=== PATIENT | female | born 1995 | race African-American/Black ===

== ENCOUNTER 2017-01-15 22:56 | Emergency (ER) ==
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
[2017-01-15] MEDS ORDERED: NS 1,000 ML IV PRN (23:28)
[2017-01-15] MEDS ORDERED: ZOFRAN IV ONE (23:29)
[2017-01-15] MEDS ORDERED: MORPHINE IV ONE (23:29)
[2017-01-15 23:44] LABS: MANUAL DIFF NEEDED? NO
[2017-01-15 23:46] LABS: URINE SOURCE CLEAN CATCH
[2017-01-15 23:51] LABS: BASO% 0.1 % (0.0-0.8); EOS# 0.09 X1000 (0.0-0.7); EOS% 0.9 % (0.0-10.0); HEMATOCRIT 34.9 % (37.0-47.0); HEMOGLOBIN 11.8 g/dL (12.0-16.0); IMM GRAN# 0.01 X1000 (0.0-0.04); IMM GRAN% 0.1 % (0.0-0.5); LYMPH# 4.01 X1000 (1.2-3.4); LYMPH% 41.4 % (20.5-51.1); MCHC 33.8 g/dL (33-37); MONO# 0.99 X1000 (0.11-0.59); MONO% 10.2 % (1.7-9.3); MPV 10.6 FL (7.4-10.4); NEUT% 47.3 % (42.2-75.2); PLT 206 X1000 (130-400); RBC 4.53 XMIL (4.2-5.4)
[2017-01-16 00:12] LABS: BILIRUBIN URINE NEGATIVE (NEGATIVE); BLOOD URINE NEGATIVE (NEGATIVE); CLARITY CLEAR (CLEAR); COLOR YELLOW; GLUCOSE URINE NEGATIVE (NEGATIVE); LEUKOCYTES URINE NEGATIVE (NEGATIVE); NITRITE URINE NEGATIVE (NEGATIVE); PROTEIN URINE NEGATIVE (NEGATIVE); UROBILINOGEN URINE NORMAL
[2017-01-16 00:21] LABS: AGAP 7; ALBUMIN 3.9 g/dL (3.5-5.0); ALKALINE PHOSPHATASE 160 U/L (32-104); BUN 6 mg/dL (8-22); CHLORIDE 101 mmol/L (98-107); COSMO 262; GOT 26 U/L (10-30); GPT 21 U/L (10-36); POTASSIUM 3.3 mmol/L (3.5-5.1); SODIUM 132 mmol/L (136-145); TCO2 24 mmol/L (25-35)
[2017-01-16 00:23] LABS: URINE CULTURE PL NEEDED? YES; URINE EPITHELIAL CELLS >10 /HPF (<10); URINE RBC <10 /HPF (<10); URINE WBC <10 /HPF (<10)
[2017-01-16 02:03] VITALS: BP 123/72
--- NOTE | 2017-01-16 06:57 | Diag Imaging Result Document ---
PROCEDURE NAME: HEAD/C-SPINE W/O CONTRAST - 01/16/2017 CT BRAIN AND CERVICAL SPINE WITHOUT CONTRAST: CT BRAIN: TECHNIQUE: Dose-reduction protocol. IMPRESSION: No parenchymal hemorrhage. No epidural or subdural hematoma. No subarachnoid hemorrhage. No skull fracture. No mass identified on this noncontrasted exam. No hydrocephalus. No sinus opacification or air fluid levels. IMPRESSION: No hemorrhage. No injury. CT CERVICAL SPINE WITHOUT CONTRAST: FINDINGS: There is good alignment to the cervical spine. No precervical soft tissue swelling. No subluxation. Prominent adenoidal tissue. No fracture. No disk herniation identified. IMPRESSION: No acute bony injury. A preliminary report was given at 1:13 a.m.
--- NOTE | 2017-01-16 07:04 | Diag Imaging Result Document ---
PROCEDURE NAME: ABDOMEN W/O CONTRAST - 01/16/2017 CT ABDOMEN WITHOUT ORAL OR INTRAVENOUS CONTRAST: Injury cannot be excluded without intravenous contrast. FINDINGS: The lower lungs are clear. No pleural effusions. No fluid about the liver or spleen. No abnormality to the liver or spleen identified on this noncontrast exam. The gallbladder is contracted. Normal pancreas and adrenal glands. No renal stones. No hydronephrosis. No retroperitoneal hematoma. The bowel loops are not dilated. Normal aorta. No free air. IMPRESSION: 1. Unable to exclude injury without intravenous contrast. However, there is no free fluid or free air. 2. No renal stones. 3. No bowel obstruction. A preliminary report was given at 1:26 a.m.
== END 2017-01-16 02:02 | disposition home or self-care (01) ==
LOC: P.ED 22:56
DX: S09.90XA Unspecified injury of head, initial encounter (principal); S30.1XXA Contusion of abdominal wall, initial encounter; S61.250A Open bite of right index finger without damage to nail, initial encounter; R51 Headache; M54.2 Cervicalgia; M79.1 Myalgia; V86.59XA Driver of other special all-terrain or other off-road motor vehicle injured in nontraffic accident, initial encounter; Y04.1XXA Assault by human bite, initial encounter; E07.9 Disorder of thyroid, unspecified; R01.1 Cardiac murmur, unspecified
CPT/HCPCS: 70450; 72125; 74150; 80053; 81001; 81025; 85025; 87077; 87088; 96361; 96374; 96375; J2270; J2405; J7030

== ENCOUNTER 2020-01-14 12:21 | Inpatient (IN) ==
[2020-01-14] MEDS ORDERED: BENADRYL IV ONE (12:49)
[2020-01-14] MEDS ORDERED: SOLU-MEDROL IV ONE (12:49)
[2020-01-14] MEDS ORDERED: SODIUM CHLORIDE 0.9% INJ ONE ×2 (12:49→19:43)
[2020-01-14] MEDS ORDERED: PEPCID IV ONE (12:49)
[2020-01-14] MEDS ORDERED: EPINEPHRINE SUBQ ONE (12:52)
[2020-01-14] MEDS ORDERED: NS 500 ML IV ONE (13:43)
--- NOTE | 2020-01-14 14:29 | PROVIDER DOCUMENTATION ---
This chart was entered by Joanna Dave Scribe, acting as scribe for Roxane Fitzgerald MD. HPI-Rash/Wound/ReCheck <Zane Mckeon - Last Filed: 01/14/20 16:10> <Eulogio Villanueva - Last Filed: 01/15/20 00:22> - General Source: patient - History of Present Illness-Dermatology Location: reports: face Quality: reports: painful Severity: reports: mild Onset/Duration: reports: this morning (0600.) Timing: reports: still present, getting worse Context/Associated Symptoms: reports: swelling/mass/lumps (swelling) Identifiable cause?: No Similar Symptoms Previously?: No Recently seen or treated by another doctor?: No <Roxane Fitzgerald - Last Filed: 01/19/20 22:06> - General Chief Complaint: Allergic Reaction Stated Complaint: POSS ALLERGIC REACTION Time Seen by Provider: 01/14/20 12:47 Allergies/Adverse Reactions: Allergies Allergy/AdvReac Type Severity Reaction Status Date / Time No Known Allergies Allergy Verified 01/14/20 13:10 Home Medications: Home Medication List Medication Instructions Recorded Confirmed Last Taken Type Amoxicillin/Pot Clavulanate 875 mg PO Q12HR #20 tab 01/17/20 Unknown Rx [Augmentin] Lansoprazole [Prevacid] 30 mg PO DAILY #30 tab.rap 01/17/20 Unknown Rx Methimazole [Tapazole] 5 mg PO BID #60 tab 01/17/20 Unknown Rx Metoprolol [Lopressor] 25 mg PO Q12HR #60 tab 01/17/20 Unknown Rx Ondansetron Odt [Zofran Odt] 4 mg PO Q6H PRN PRN #30 tab 01/17/20 Unknown Rx - History of Present Illness-Dermatology Nature of Presenting Problem: Patient is a 24 year old female who presents with facial swelling. States swelling started at 0600. Reports taking a 800 mg ibuprofen this morning due to menstrual cramps. (Roxane Fitzgerald) Review of Systems - Adult - REVIEW OF SYSTEMS - ADULT Constitutional: reports: no symptoms reported Eyes: reports: no symptoms reported Ears, Nose, Mouth & Throat: reports: no symptoms reported Cardiovascular: reports: no symptoms reported Respiratory: reports: no symptoms reported Gastrointestinal: reports: no symptoms reported Genitourinary: reports: no symptoms reported Musculoskeletal: reports: no symptoms reported Integumentary: reports: see HPI, other (swelling to face) Neurological: reports: no symptoms reported Psychiatric: reports: no symptoms reported Endocrine: reports: no symptoms reported Hematologic/Lymphatic: reports: no symptoms reported Allergic/Immunologic: reports: no symptoms reported All Other Systems: Reviewed and Negative <Roxane Fitzgerald - Last Filed: 01/19/20 22:06> Past History - Adult - PAST MEDICAL HISTORY-ADULT Review of Records: reports: Old Records Reviewed, Nursing Assessment Review, Medications Reviewed, Social history reviewed & non-contributory. Major Childhood Illnesses: reports: denies history Cardiovascular: reports: denies history Respiratory: reports: asthma Gastrointestinal: reports: denies history Obstetrical/Gynecological: reports: fibroids, ovarian cysts Genitourinary: reports: denies history Musculoskeletal: reports: denies history Neurological: reports: denies history Endocrine/Immune: reports: anemia, thyroid disorder, other (blood transfusion yr ago) Other Conditions: reports: denies history - PRIOR SURGERIES/PROCEDURES Surgical/Procedure History: reports: none - PRIOR HOSPITALIZATIONS Prior Hospitalizations: reports: none - IMMUNIZATION STATUS Childhood Immunizations: See Nurse Assessment Flu Vaccine: See Nurse Assessment - FAMILY HISTORY Family History: reviewed, not pertinent, lung disease - SOCIAL HISTORY Smoking: cigarettes, less than 1 pack/day Provider spent 3-5 mins advising pt. on dangers of tobacco.: Discussed manners to quit use, and f/u contacts for add'l counseling. Substance Use: denies Living Situation: family <Roxane Fitzgerald - Last Filed: 01/19/20 22:06> Physical Exam-General - PHYSICAL EXAM-ADULT Initial Vital Signs Reviewed: Yes - CONSTITUTIONAL General Appearance: alert, mild distress. negative: slow to respond - HEAD, EARS, NOSE, MOUTH & THROAT HENMT: moist mucous membranes, pharynx normal, angioedema (upper lip and bilateral cheeks) - RESPIRATORY Respiratory: chest non-tender, wheezing (scattered wheezing bilaterally). negative: respiratory distress - CARDIOVASCULAR Cardiovascular: tachycardia - GASTROINTESTINAL (ABDOMEN) Abdominal Exam: normal bowel sounds, non tender, soft - MUSCULOSKELETAL Extremity: normal range of motion, normal gait, normal inspection - SKIN Integumentary: normal color, normal turgor, warm/dry - NEUROLOGIC Neurologic: grossly normal - PSYCHIATRIC Psych/Mental Status: normal mood/affect, normal thought content, normal thought process, oriented x 3 <Roxane Fitzgerald - Last Filed: 01/19/20 22:06> Progress - REASSESSMENT Reassessment #1 Time Reassessed: 13:44 (no improvement or worsening of s/s. Will order FFP. O2 sat remain 99% on RA) Reassessment #2 Time Reassessed: 16:10 (pt sleeping. No improvement or worsening in symptoms. FFP started approx 20min prior.) <Zane Mckeon - Last Filed: 01/14/20 16:10> - REASSESSMENT Reassessment #3 Time Reassessed: 19:35 Status: unchanged Reassessment Comment: still has swelling in lips and throat - CONSULTS/PCP/HOSPITALIST Notification #1 *Consult/PCP/Hospitalist*: Dr. May, hospitalist Time Discussed: 19:40 Consult Disposition: Admit <Eulogio Villanueva - Last Filed: 01/15/20 00:22> - PLAN OF CARE/RESULTS Result Diagrams: 01/16/20 10:00 01/16/20 10:00 - CHANGE OF SHIFT REPORT (ED Provider) 1 Report Given and Care Transferred to:: Dr Villanueva Time of Transfer: 19:00 Items Pending: Other (completion of transfusion and dispo) <Roxane Fitzgerald - Last Filed: 01/19/20 22:06> - PLAN OF CARE/RESULTS Progress/Plan/Lab Results: Orders Category Date Time Status Admit - [facility] Routine AdmDCTranf 01/14/20 19:41 Active Activity - Bed Rest with BRP ORDERED Care 01/14/20 19:41 Completed Consent for Test/Procedure DIRECTED Care 01/14/20 13:44 Completed NEWS Score 2-4:Order NEWS Lactate Series NOW Care 01/14/20 12:45 Completed Neurological Check Q4H Care 01/14/20 19:42 Completed Notify MD if DIRECTED Care 01/14/20 13:44 Completed Resuscitation Status Routine Care 01/14/20 19:41 Completed Transfuse .Give-Transfuse Care 01/14/20 13:43 Completed Vital Signs Order Q 4-HR ASSESS Care 01/14/20 19:41 Completed ANTIBODY IDENTIFICATION [BBK] Stat Lab 01/14/20 12:54 Completed FRESH FROZEN PLASMA [BBK] Stat Lab 01/14/20 12:54 Completed TYPE & SCREEN [BBK] Stat Lab 01/14/20 12:54 Completed 0.9% Sodium Chloride Inj [Ns] 500 ml Med 01/14/20 13:43 Discontinued IV 30 mls/hr Diphenhydramine [Benadryl] Med 01/14/20 12:49 Discontinued 50 mg IV NOW ONE Diphenhydramine [Benadryl] Med 01/14/20 20:00 Discontinued 50 mg IV Q6H Epinephrine Med 01/14/20 12:52 Discontinued 0.3 mg SUBQ NOW ONE Famotidine [Pepcid] Med 01/14/20 12:49 Discontinued 20 mg IV NOW ONE Famotidine [Pepcid] Med 01/14/20 21:00 Discontinued 20 mg IV Q12H Methylprednisolone Sod Succ [Solu-Medrol] Med 01/14/20 12:49 Discontinued 125 mg IV NOW ONE Methylprednisolone Sod Succ [Solu-Medrol] Med 01/14/20 20:00 Discontinued 125 mg IV Q6H Sodium Chloride 0.9% Med 01/14/20 12:49 Discontinued 5 - 10 ml INJ NOW ONE Sodium Chloride 0.9% Med 01/14/20 19:43 Discontinued 5 - 10 ml INJ NOW ONE Sodium Chloride 0.9% Med 01/14/20 21:00 Discontinued 5 - 10 ml INJ Q12H Oxygen Device Routine Oth 01/14/20 19:42 Completed Pulse Oximetry Stat Oth 01/14/20 19:44 Completed Transfer/Admit Order [TRANSFER] Routine Transfer 01/14/20 19:44 Completed Patient did not improve after benadryl, solu-medrol, pepcid, and epi. Concern for possible hereditary angioedema as she is on no medications to cause this. Patient given FFP. Multiple reeval with slow improvements. No concern for airway obstruction at this time. Signed patient out to Dr Villanueva to complete transfusion. Further dispo per his reeval. (Roxane Fitzgerald) Departure <Zane Mckeon - Last Filed: 01/14/20 16:10> - Departure Time of Disposition Decision: 20:18 Certified Medical Emergency: Emergent <Eulogio Villanueva Last Filed: 01/15/20 00:22> - Departure Date of Disposition Decision: 01/14/20 Certified Medical Emergency: Emergent - Critical Care Note This patient required my direct & personal management of CC.: Yes Total Time (mins): 75 Critical Care Statement: This patient required my direct personal management to treat or rule out processes, the absence of which, could potentiallly result in sudden, clinically significant life or limb threatening deterioration. <Roxane Fitzgerald - Last Filed: 01/19/20 22:06> - Departure DIAGNOSIS: Angioedema Qualifiers: Encounter type: initial encounter Qualified Code(s): T78.3XXA - Angioneurotic edema, initial encounter Disposition: HOME 01 Condition: Stable Attestation - Physician/ ISSA Attestation Patient care was provided by Advanced Practice Provider:: Yes Advanced Practice Provider:: Zane Mckeon Advanced Practice Provider documentation review:: The Mid-level provider documentation, treatment plan and medical decision making was reviewed by the physician who agrees with all treatment and medical decision making by the MLP. The physician spent face to face time with patient:: Yes Advanced Practice Provider documentation review:: Supervising physician onsite and consulted in the evaluation and care of this patient. The physician did have a face to face encounter with the patient. <oRxane Fitzgerald - Last Filed: 01/19/20 22:06> This chart was documented by the indicated scribe, (Joanna Dave Scribe) and accurately reflects the services I performed and decisions made by me, Roxane Fitzgerald MD, as attested by the provider's signature.
[2020-01-14] MEDS ORDERED: SODIUM CHLORIDE 0.9% INJ SCH ×2 (21:00)
[2020-01-14] MEDS ORDERED: PEPCID IV SCH (21:00)
[2020-01-14] MEDS: SOLU-MEDROL IV SCH (21:52)
[2020-01-14] MEDS: BENADRYL IV SCH (21:52)
[2020-01-14] MEDS: ZOFRAN IV PRN (22:32)
[2020-01-15] MEDS: BENADRYL IV SCH (01:58)
[2020-01-15] MEDS: SOLU-MEDROL IV SCH ×2 (01:58→17:55)
[2020-01-15 06:17] LABS: INR 1.06; PROTIME 14.3 Seconds (11.0-16.0)
[2020-01-15 06:37] LABS: HEMATOCRIT 24.6 % (37.0-47.0); HEMOGLOBIN 6.9 g/dL (12.0-16.0)
[2020-01-15] MEDS ORDERED: APRESOLINE IV PRN (06:49)
[2020-01-15 13:31] LABS: HEMATOCRIT 24.6 % (37.0-47.0); HEMOGLOBIN 6.9 g/dL (12.0-16.0); LYMPH# 0.46 X1000 (1.2-3.4); LYMPH% 25.4 % (20.5-51.1); MCH 17.4 PG (27-31); MONO% 22.1 % (1.7-9.3); MPV 10.1 FL (7.4-10.4); NEUT# 0.95 X1000 (1.4-6.5); NEUT% 52.5 % (42.2-75.2); PLT 163 X1000 (130-400); RBC 3.97 XMIL (4.2-5.4); RDW 20.3 % (11.5-14.5); WBC 1.81 X1000 (4.8-10.8)
[2020-01-15 13:37] LABS: BILIRUBIN URINE NEGATIVE (NEGATIVE); BLOOD URINE MODERATE (NEGATIVE); COLOR YELLOW; KETONE URINE 20 mg/dL (NEGATIVE); LEUKOCYTES URINE NEGATIVE (NEGATIVE); NITRITE URINE NEGATIVE (NEGATIVE); PROTEIN URINE TRACE mg/dL (NEGATIVE); TURBIDITY URINE CLEAR (CLEAR); UR EPITHELIAL CELLS <10 /HPF (<10); URINE BACTERIA 2+ /HPF; URINE RBC <10 /HPF (<10); URINE SOURCE CLEAN CATCH; URINE WBC <10 /HPF (<10); UROBILINOGEN URINE NORMAL (NORMAL)
[2020-01-15 13:37] LABS: AGAP 13; BUN 15 mg/dL (8-22); CALCIUM 8.5 mg/dL (8.8-10.2); CHLORIDE 100 mmol/L (98-107); COSMO 278; CREATININE 0.3 mg/dL (0.5-0.9); ESTIMATED GFR > 60; GLUCOSE 194 mg/dL (70-104); POTASSIUM 3.8 mmol/L (3.5-5.1); SODIUM 136 mmol/L (136-145); TCO2 24 mmol/L (25-35)
[2020-01-15 14:09] LABS: GLUCOSE URINE 300 mg/dL (NEGATIVE)
[2020-01-15] MEDS ORDERED: NS 500 ML IV ONE (14:13)
[2020-01-15] MEDS ORDERED: TYLENOL PO ONE ×2 (14:25→18:26)
[2020-01-15] MEDS ORDERED: BENADRYL PO ONE ×2 (14:25→18:26)
[2020-01-15] MEDS ORDERED: SOLU-MEDROL IV SCH (14:30)
[2020-01-15] MEDS ORDERED: NS 500 ML IV SCH (14:30)
[2020-01-15 14:45] LABS: UR AMPHETAMINES QUAL NONE DETECTED (NONE DETECT); UR BARBITUATES QUAL NONE DETECTED (NONE DETECT); UR BENZODIAZEPIN QUAL NONE DETECTED (NONE DETECT); UR CANNABINOIDS QUAL PRESUMPTIVE POSITIVE (NONE DETECT); UR COCAINE QUAL NONE DETECTED (NONE DETECT); UR METHADONE QUAL NONE DETECTED (NONE DETECT); UR METHAMPHETAMINE QUAL NONE DETECTED (NONE DETECT); UR OPIATES QUAL NONE DETECTED (NONE DETECT); UR OXYCODONE QUAL NONE DETECTED (NONE DETECT); UR PCP QUAL NONE DETECTED (NONE DETECT); UR PROPOXYPHENE QUAL NONE DETECTED (NONE DETECT); UR TCA QUAL NONE DETECTED (NONE DETECT)
[2020-01-15 16:02] LABS: BANDS 8 % (0-1); HYPOCHROM 3+; LYMPHS 20 % (21-51); MICROCYTOSIS 3+; MONO 8 % (1-9); SEGS 64 % (42-75)
[2020-01-15 16:31] LABS: IRON SATURATION 3 %; TIBC 378 ug/dL; TOTAL IRON 11 ug/dL (49-151); UNBOUND IRON 367 ug/dL (112-346)
--- NOTE | 2020-01-15 17:51 | Diag Imaging Result Doc PS360 ---
EXAM: CT HEAD W/O CONTRAST INDICATION: lethargy TECHNIQUE: This exam was performed using automated exposure control, adjustment of mA or kV according to patient size, and/or use of iterative reconstruction technique. COMPARISON: 11/22/2019 FINDINGS: There is no definite acute infarct given the limited sensitivity of CT versus MRI. There is no discrete intracranial mass, mass effect, or intracranial hemorrhage. A moderate-sized right mastoid air cell effusion has developed since the previous study. Surrounding soft tissues and bony structures are essentially unremarkable, otherwise. IMPRESSION: 1.No evidence of acute intracranial pathology. 2.Moderate-sized right mastoid air cell effusion. Electronically signed by Marques Lopez 01/15/2020 5:49 PM
[2020-01-15] MEDS: PEPCID IV SCH (17:54)
[2020-01-15] MEDS: ZYRTEC PO SCH (17:54)
[2020-01-15] MEDS: ZOFRAN IV PRN (17:55)
[2020-01-15] MEDS: SODIUM CHLORIDE 0.9% INJ SCH (17:55)
--- NOTE | 2020-01-15 17:57 | Diag Imaging Result Doc PS360 ---
EXAM: CT NECK W/CONTRAST INDICATION: ?angioedema, ?lymphadenopathy TECHNIQUE: This exam was performed using automated exposure control, adjustment of mA or kV according to patient size, and/or use of iterative reconstruction technique. COMPARISON: None. FINDINGS: The salivary glands are unremarkable. There is a tiny 2.6 mm hypodense nodule or cyst associated with the left thyroid lobe. The thyroid is unremarkable, otherwise. There is motion artifact through the pharynx, which obscures fine details. However, there does appear to be hypertrophy of the palatine and nasopharyngeal tonsils. The hypertrophied palatine tonsils appear to be narrowing pharynx in the lateral dimension. No well-defined soft tissue fluid collection or mass is identified. The remainder of the aerodigestive tract is unremarkable. There are shotty nonspecific cervical lymph nodes. The lung apices are unremarkable. A right mastoid air cell effusion is noted. The middle ear cavities appear to be patent. IMPRESSION: 1.Hypertrophy of the palatine and nasopharyngeal tonsils that are probably reactive as detailed above. 2.Shotty nonspecific cervical lymph nodes bilaterally. 3.Right mastoid air cell effusion. Electronically signed by Marques Lopez 01/15/2020 5:55 PM
--- NOTE | 2020-01-15 18:40 | HISTORY AND PHYSICAL ---
CHIEF COMPLAINT: My face is swelling. HISTORY OF PRESENT ILLNESS: This is a 24-year-old female who presented to the emergency room complaining of facial swelling that started approximately at 6 a.m. She denies any prior episodes. She was noted to have upper lip and bilateral cheek edema with the right cheek greater than left. She states that about 2 hours after she started swelling, she was having menstrual cramps, so she took 800 mg of ibuprofen. She states that there was no change in the swelling after taking the ibuprofen. Symptoms persisted. She began to feel the sensation that her tongue and throat were swelling. Therefore, she presented to the emergency room. On arrival to the emergency room, it is documented that she had edema to her upper lip, bilateral cheeks with a right cheek more than the left. Also, right arm and right leg edema. She did have some wheezing. She has asthma and she stated that her asthma had been acting up over the past 3 or 4 days. She denies any prior episodes similar to this. She was found to have as well right arm and right leg edema. During her stay in the emergency room along with the sensation that her throat was closing up, there is no documentation that she had any tongue nor uvula edema. She was given 2 units of fresh frozen plasma as well as Solu-Medrol, Pepcid, epi and Benadryl and admitted for further evaluation and treatment. A hemoglobin hematocrit ordered for 6 o'clock this morning revealed a hemoglobin 6.9, hematocrit 24.6. She does have a prior history of anemia. In June 2013 she was admitted and evaluated by Dr. Hu for a hemoglobin of 4. At that time, she was found to be severely iron deficient, having an iron of level 9 with a TIBC of 523, ferritin of 5. She was transfused, started on B12 injections. She states that she was instructed to follow up on an outpatient basis for further testing, although she opted not to. PAST MEDICAL HISTORY: 1. Anemia. 2. Asthma. PAST SURGICAL HISTORY: Denies. SOCIAL HISTORY: She denies any alcohol or tobacco use. Her drug screen is positive for cannabinoids today. ALLERGIES: No known drug allergies. HOME MEDICATIONS: She denies any. FAMILY HISTORY: Positive for hypertension. She denied any knowledge of any hematologic or oncologic diagnoses. REVIEW OF SYSTEMS: Discussed with patient with pertinent positives stated in the HPI. She denied any syncope or dizziness, chest pain, palpitations, cough, fevers, chills, night sweats, recent weight loss or weight gain, any nausea, vomiting, diarrhea, constipation, black or bloody vomitus or stools, any hematuria, dysuria, frequency, urgency. PHYSICAL EXAMINATION: GENERAL: This is a 24-year-old female who is sitting up in the bed in no distress. VITAL SIGNS: Blood pressure is 150/90 with a heart rate of 100, respirations are 16, temperature is 97.6 degrees with room air sat 99%. EYES: Pupils equal, round, react to light. EOMs are intact. Sclerae anicteric. HEENT: Head is normocephalic, atraumatic. Mucous membranes are moist. NECK: Supple with trachea midline. CARDIOVASCULAR: Regular rate and rhythm. S1 and S2 appreciated. No murmur. Peripheral pulses are palpable x4 extremities. PULMONARY: Breath sounds are clear. No increased work of breathing noted. Chest rises and falls with symmetric respirations. GASTROINTESTINAL: Abdomen is soft, nontender, nondistended with bowel sounds in all 4 quadrants. NEUROLOGIC: She is lethargic. She states she is just exhausted. She is sleepy. She is oriented x3. She follows commands for a bit, then states she just wants to be left alone so she can rest. LABS: Hemoglobin 6.9 with hematocrit 24.6. CBC, PT, INR, CMP, iron studies. ASSESSMENT AND PLAN: 1. Profound anemia. We will transfuse 2 units of packed cells over 4 hours each draw an anemia panel. Will check a CBC, CMP, PT, INR and will collect urine and a urine drug screen. We will obtain a urine test. Of note, the patient states that she is on her period now, although she states it has been a light period. She denies any menorrhagia. 2. Edema of the lip, cheeks, right arm and right leg. She does continue with some edema of the right cheek. She denies any sensation of difficulty swallowing or edema to her tongue. She has no tongue or uvula edema that is noted. We will give steroids along with IV Pepcid, start Zyrtec daily. 3. Hypertension. Continue with hydralazine IV p.r.n. 4. Pancytopenia. I have discussed the patient with [*]. 5. Leukopenia have discussed with the patient with Dr. Hu who is on-call for Hematology Oncology. We will obtain a CT of the neck and evaluate for a swollen lymph nodes or swollen airway and once results are back, we will discuss with him, formulate a plan. 6. Lethargy. We will get a CT of the head as this has been persistent. 7. We will also do neuro checks q.4 hours x24 hours. Plan was discussed with Dr. May. Further treatments pending hospital course. Dictated by MELISSA Rosas for Rudy May MD cc: MELISSA Rosas MD
[2020-01-15 19:44] LABS: RETIC% 1.02 % (0.8-2.1); RETIC-HE 16.9 PG (28.2-36.6)
--- NOTE | 2020-01-15 23:14 | HISTORY AND PHYSICAL ---
ADDENDUM: The patient presented to the hospital with swelling of her face. She was given multiple medications in the ER. Upon further evaluation, her hemoglobin and hematocrit are noted to be low. She is noted to have high blood pressure. Swelling has improved this morning on exam. She states that she was nauseated, but states she typically is so if she has not eaten in a while. Upon evaluation of her old chart, it does appear as though she had anemia in the past and was told to follow up. She admits that she did not follow up with her doctor regarding her anemia. Certainly concerning for the cause of her facial swelling and her anemia. Certainly lymphoma would be in that differential. We are going to check other labs as well as scans, and we will follow. cc: Rudy May MD
[2020-01-16] MEDS: SOLU-MEDROL IV SCH ×2 (00:29→06:09)
[2020-01-16] MEDS: AUGMENTIN PO SCH ×3 (06:07→21:19)
[2020-01-16] MEDS: PEPCID IV SCH (06:09)
[2020-01-16] MEDS: SODIUM CHLORIDE 0.9% INJ SCH (06:09)
[2020-01-16] MEDS: LOPRESSOR PO SCH ×2 (08:32→21:19)
[2020-01-16] MEDS: ZYRTEC PO SCH (08:32)
[2020-01-16] MEDS: TAPAZOLE PO SCH ×2 (08:33→21:19)
[2020-01-16] MEDS ORDERED: M.V.I.-12 10 ML, FOLIC ACID 1 MG, MAGNESIUM SULFATE 1 GM, THIAMINE 100 MG in NS 1,000 ML IV ONE (08:54)
[2020-01-16] MEDS: ZOFRAN IV PRN (08:59)
[2020-01-16] MEDS ORDERED: NS 1,000 ML IV SCH (09:00)
[2020-01-16 10:48] LABS: HEMATOCRIT 39.5 % (37.0-47.0); HEMOGLOBIN 12.2 g/dL (12.0-16.0); IMM GRAN# 0.01 X1000 (0.0-0.04); IMM GRAN% 0.2 % (0.0-0.5); LYMPH# 0.64 X1000 (1.2-3.4); LYMPH% 15.9 % (20.5-51.1); MCH 20.6 PG (27-31); MCHC 30.9 g/dL (33-37); MCV 66.8 FL (81-99); MONO# 0.21 X1000 (0.11-0.59); MONO% 5.2 % (1.7-9.3); NEUT# 3.16 X1000 (1.4-6.5); NEUT% 78.7 % (42.2-75.2); PLT 197 X1000 (130-400); RBC 5.91 XMIL (4.2-5.4); RDW 26.9 % (11.5-14.5); WBC 4.02 X1000 (4.8-10.8)
[2020-01-16 10:58] LABS: AGAP 16; BUN 16 mg/dL (8-22); CALCIUM 8.6 mg/dL (8.8-10.2); CHLORIDE 101 mmol/L (98-107); COSMO 275; CREATININE 0.3 mg/dL (0.5-0.9); ESTIMATED GFR > 60; GLUCOSE 133 mg/dL (70-104); POTASSIUM 4.1 mmol/L (3.5-5.1); SODIUM 136 mmol/L (136-145); TCO2 20 mmol/L (25-35)
[2020-01-16 11:42] LABS: FLOW CYTOMETERY SOURCE WHOLE BLOOD; LEUKEMIA LYMPHOMA BY FLOW REFERRED FOR TESTING
[2020-01-16 12:03] LABS: ANISOCYTOSIS 2+; HYPOCHROM OCCASIONAL; LYMPHS 18 % (21-51); MICROCYTOSIS 1+; MONO 4 % (1-9); SEGS 78 % (42-75)
[2020-01-16] MEDS ORDERED: NICODERM PATCH TD SCH (13:00)
--- NOTE | 2020-01-16 14:39 | Diag Imaging Result Doc PS360 ---
EXAM: US THYROID - 01/16/2020 HISTORY: hyperthyroid TECHNIQUE: Ultrasound thyroid COMPARISON: None. FINDINGS: The right lobe measures 6.4 x 2.9 x 2.6 cm in size. The left lobe measures 6.7 x 2.7 x 2.2 cm in size. The bilateral lobes demonstrate diffusely heterogeneous echotexture. There is no discrete focal lesion identified. IMPRESSION: Somewhat prominent thyroid with diffusely heterogeneous echotexture. No discrete focal thyroid lesion. Electronically signed by Enrique Peña 01/16/2020 2:36 PM
--- NOTE | 2020-01-16 21:33 | PROGRESS NOTE ---
DATE: 01/16/2020 SUBJECTIVE: Patient still complains of nausea and abdominal pain. Denies any emesis or hematemesis. Denies diarrhea, constipation. EXAM: Temperature 99, pulse 98, respiratory rate 18, BP 158/87.General: Patient is pleasant. She is in no current respiratory distress. HEENT: Normocephalic. Neck: Supple. Cardiovascular: Regular rate. Chest: Clear, nonlabored. Abdomen: Soft, nondistended. Extremities: Moves all extremities. ASSESSMENT: 1. Profound anemia. 2. Hyperthyroidism. 3. Supraventricular tachycardia. 4. Pancytopenia. 5. Hypertension. PLAN: We will continue patient in the hospital. Continue to follow her H H. We have consulted with Hematology. Certainly concerning that her angioedema may be from lymphoma given her leukopenia. The patient is aware. We will continue to follow with Hematology-Oncology. cc: Rudy May MD
[2020-01-16] MEDS ORDERED: SEROQUEL XR PO PRN (22:26)
[2020-01-17] MEDS: PROTONIX PO SCH ×2 (06:16→10:04)
[2020-01-17 08:26] VITALS: BP 161/104
[2020-01-17] MEDS: ZYRTEC PO SCH (10:04)
[2020-01-17] MEDS: AUGMENTIN PO SCH (10:04)
[2020-01-17] MEDS: TAPAZOLE PO SCH (10:04)
[2020-01-17] MEDS: LOPRESSOR PO SCH (10:05)
--- NOTE | 2020-01-18 02:50 | DISCHARGE SUMMARY ---
ADMISSION DATE: 01/14/2020 DISCHARGE DATE: 01/17/2020 ADDENDUM: The patient seen and examined by myself. Full note dictated and discussed with nurse practitioner. Discussed with patient that she did have some anemia. She is to follow up outpatient with Dr. Hu, hematology. Currently, her hemoglobin and hematocrit is improved despite transfusion. She was admitted with edema of undetermined origin, although currently her facial edema has resolved. She was diagnosed with hyperthyroidism, started on methimazole. Ultrasound of her neck was normal. She also has supraventricular tachycardia and was started on metoprolol. Please see full note. cc: Rudy May MD
--- NOTE | 2020-01-18 04:41 | DISCHARGE SUMMARY ---
ADMISSION DATE: 01/14/2020 DISCHARGE DATE: 01/17/2020 DIAGNOSES: 1. Profound anemia status post transfusion of 2 units of packed blood cells. 2. Edema of the lips, cheeks right arm and right leg. Status post 2 units of fresh frozen plasma. This has resolved. 3. Hypertension. 4. Pancytopenia. 5. Leukopenia. 6. Hyperthyroidism. 7. Supraventricular tachycardia. 8. Possible lymphoma. 9. Right mastoid air cell effusion. DIAGNOSTICS: 1. CT of the neck revealed hypertrophy of the palatine and nasopharyngeal tonsils that are probably reactive. 2. Shotty nonspecific cervical lymph nodes bilateral. 3. Right mastoid air cell infusion. 4. CT of the head revealed no evidence of acute intracranial pathology. Moderate right-sided air cell effusion. 5. Thyroid ultrasound revealed somewhat prominent thyroid with diffusely heterogeneous echotexture. No discrete focal thyroid lesion. HOSPITAL COURSE: Ms. Romero presented to the emergency room stating that her face was swelling as well as her right arm and right leg. She was noted to have upper lip, bilateral cheek with right cheek greater than left as well as right arm and right leg edema. She did have some wheezing on arrival, although she stated that her asthma had been acting up on the 3 to 4 days prior. She had a sensation of her throat closing although on exam no tongue or uvula edema was noted. In the emergency room, she was given 2 units of fresh frozen plasma as well as Solu- Medrol, Pepcid, epinephrine and Benadryl. We continued IV Pepcid b.i.d. with Zyrtec daily. She had no further wheezing. Swelling resolved. She had no further sensation of her tongue or throat swelling. She had no difficulty swallowing. I did discuss the patient patient's lab work having a red blood cell of 1.81, hemoglobin and hematocrit of 6.9 and 24, platelets of 163,[address] Hu along with her presentation. He did recommend that we do a CT of the neck to look for lymph nodes. She was found to have bilateral cervical lymph nodes. She was found to have a 2.6 mm nodule on the left thyroid lobe. TSH was drawn. She was found to have a TSH of 0.01. She had SVT while in the hospital. She was started on Tapazole 5 mg b.i.d. Blood pressures were in the 150s. In regards to her blood pressure, she primarily ran in the 150s/90s to low 100 for which she is being discharged on Lopressor 25 mg p.o. b.i.d. She was found to have mastoid air effusion for which she was placed on Augmentin q.12 hours for 10 days. She did have profound anemia for which we did iron studies and iron level was 11 with a TIBC of 378. She received 2 units of fresh frozen having a hemoglobin of 6.9 and 24.6 on admission and 12.2 and 39.5 on discharge after receiving blood. The patient states she was admitted to the hospital in 2012 with anemia having a hemoglobin of [address] Hu consulted. She was found to be profoundly iron deficient. She was supposed to follow up with him after this and she told me that she did not because she just did not want to. She was discharged on iron at that time and she stated that she did not feel it. In reviewing her labs, she has had a TSH of 0.01 since 2012. It was discussed with the patient that given her labs and her edema, this could be from lymphoma and it was imperative that she follow up. We attempted to make a followup appointment with Dr. Hu for her prior to discharge although the office was closed. We did give her on her discharge instructions in writing she was told to call the office Monday to follow up within the next 1 to 2 weeks. Nursing staff will call themselves Monday to schedule an appointment and will notify the patient of the date. DISCHARGE VITAL SIGNS: Blood pressure is 134/90 with heart rate of 100, respirations 18, temperature 98.2 degrees with room air saturations 100%. DISCHARGE PHYSICAL EXAMINATION: Cardiovascular: Regular rate and rhythm. S1 and S2 appreciated. No murmur. Pulmonary: Breath sounds are clear. No increased work of breathing noted. Gastrointestinal: Abdomen is soft, nontender, nondistended with bowel sounds in all 4 quadrants. Neurologic: She is alert and oriented x3. DISCHARGE MEDICATIONS: 1. Zofran 4 mg p.o. q.6 hours p.r.n. 2. Lopressor 25 mg p.o. q.12 hours. 3. Prevacid 30 mg p.o. daily. 4. Tapazole 5 mg p.o. b.i.d. 5. Augmentin 875 p.o. q.12 hours x10 days FOLLOWUP: Dr. Hu. She was instructed to call the office Monday to schedule an appointment in 2 weeks. The nursing staff will call Monday as the office is closed today to schedule an appointment and call and notify the patient. She was instructed to call to be seen sooner or return to the emergency room for any syncope, dizziness, chest pain, palpitations, any recurring facial or body swelling, any temperature greater than 101, any nausea, vomiting, diarrhea, constipation, black or bloody vomitus or stools or for any questions or concerns that she may have. TIME: This has been a greater than 30 minute discharge. Dictated by MELISSA Rosas for Rudy May MD cc: MELISSA Rosas MD MTDD
== END 2020-01-17 10:34 | disposition home or self-care (01) | DRG 809 ==
LOC: P.MEDSURG 12:21 → P.ED 12:21 → OBSVTOIN 20:00
PROVIDERS: ATTEND Family Medicine